=== PATIENT | female | born 1965 | race Two or more races ===

== ENCOUNTER → 2016-07-12 | Outpatient (CLI) | payer BC ==
[2016-07-12 10:09] LABS: PROTHROMBIN TIME 27.9 SEC (11.4-15.4)
== END ==
LOC: LAB 09:40
PROVIDERS: ATTEND Family Medicine
DX: I82.409 Acute embolism and thrombosis of unspecified deep veins of unspecified lower extremity (principal)
CPT/HCPCS: 36415; 85610

== ENCOUNTER → 2016-08-09 | Outpatient (CLI) | payer BC ==
[2016-08-09 11:51] LABS: PROTHROMBIN TIME 37.2 SEC (11.4-15.4)
== END ==
LOC: LAB 11:33
PROVIDERS: ATTEND Family Medicine
DX: I82.409 Acute embolism and thrombosis of unspecified deep veins of unspecified lower extremity (principal)
CPT/HCPCS: 36415; 85610

== ENCOUNTER → 2016-08-17 | Outpatient (CLI) | payer BC ==
[2016-08-17 10:12] LABS: PROTHROMBIN TIME 18.6 SEC (11.4-15.4)
[2016-08-17 10:34] LABS: ALANINE AMINOTRANSFERASE 38 U/L (9-52); ALBUMIN 4.9 g/dL (3.5-5.0); ALKALINE PHOSPHATASE 92 U/L (38-126); ANION GAP 13 (5-19); ASPARTATE AMINO TRANSFERASE 26 U/L (14-36); BILIRUBIN,TOTAL 0.5 mg/dL (0.2-1.3); BLOOD UREA NITROGEN 21 mg/dL (7-20); CALCIUM 11.3 mg/dL (8.4-10.2); CARBON DIOXIDE 28 mmol/L (22-30); CHLORIDE 102 mmol/L (98-107); CREATININE RESULT 1.09 mg/dL (0.52-1.25); GLUCOSE 143 mg/dL (75-110); POTASSIUM 4.1 mmol/L (3.6-5.0); SODIUM 142.6 mmol/L (137-145); TOTAL PROTEIN 8.1 g/dL (6.3-8.2)
== END ==
LOC: LAB 09:47
PROVIDERS: ATTEND Family Medicine
DX: I82.409 Acute embolism and thrombosis of unspecified deep veins of unspecified lower extremity (principal)
CPT/HCPCS: 36415; 80053; 84436; 84443; 85610

== ENCOUNTER → 2016-08-26 | Outpatient (CLI) | payer BC ==
[2016-08-26 17:40] LABS: PROTHROMBIN TIME 31.3 SEC (11.4-15.4)
== END ==
LOC: LAB 17:15
PROVIDERS: ATTEND Family Medicine
DX: D64.9 Anemia, unspecified (principal); I82.409 Acute embolism and thrombosis of unspecified deep veins of unspecified lower extremity
CPT/HCPCS: 36415; 82607; 82728; 82746; 83540; 83550; 85045; 85610

== ENCOUNTER → 2016-09-19 | Outpatient (CLI) | payer BC ==
[2016-09-19 14:05] LABS: PROTHROMBIN TIME 33.7 SEC (11.4-15.4)
== END ==
LOC: LAB 10:21
PROVIDERS: ATTEND Family Medicine
DX: I82.409 Acute embolism and thrombosis of unspecified deep veins of unspecified lower extremity (principal)
CPT/HCPCS: 36415; 85610

== ENCOUNTER → 2016-09-25 | Outpatient (CLI) | payer BC ==
[2016-09-25 13:48] LABS: PROTHROMBIN TIME 28.2 SEC (11.4-15.4)
== END ==
LOC: LAB 13:28
PROVIDERS: ATTEND Family Medicine
DX: I80.9 Phlebitis and thrombophlebitis of unspecified site (principal)
CPT/HCPCS: 36415; 85610

== ENCOUNTER → 2016-11-09 | Outpatient (CLI) | payer BC ==
[2016-11-09 10:13] LABS: PROTHROMBIN TIME 32.6 SEC (11.4-15.4)
== END ==
LOC: LAB 09:28
PROVIDERS: ATTEND Family Medicine
DX: I82.409 Acute embolism and thrombosis of unspecified deep veins of unspecified lower extremity (principal)
CPT/HCPCS: 36415; 85610

== ENCOUNTER 2016-11-19 08:55 | Emergency (ER) | payer BC ==
[2016-11-19 09:24] LABS: ABSOLUTE BASOPHILS # (AUTO) 0.1 10^3/uL (0.0-0.2); ABSOLUTE EOSINOPHILS # (AUTO) 0.6 10^3/uL (0.0-0.6); ABSOLUTE LYMPHOCYTES (AUTO) 1.5 10^3/uL (0.5-4.7); ABSOLUTE MONOCYTES (AUTO) 0.8 10^3/uL (0.1-1.4); ABSOLUTE NEUT (AUTO) 5.5 10^3/uL (1.7-8.2); BASOPHILS % (AUTO) 0.7 % (0-2); EOSINOPHILS % (AUTO) 6.9 % (0-6); HEMATOCRIT 42.5 % (36.0-47.0); HEMOGLOBIN 14.1 g/dL (12.0-15.5); HGB HCT DIFFERENCE -0.2; LYMPHOCYTES % (AUTO) 17.2 % (13-45); MEAN CORPUSCULAR HEMOGLOBIN 29.1 pg (27.0-33.4); MEAN CORPUSCULAR HGB CONC 33.2 g/dL (32.0-36.0); MEAN CORPUSCULAR VOLUME 88 fl (80-97); MONOCYTES % (AUTO) 9.9 % (3-13); RED BLOOD COUNT 4.85 10^6/uL (3.72-5.28); RED CELL DISTRIBUTION WIDTH 13.4 % (11.5-14.0); SEGMENTED NEUTROPHILS % (AUTO) 65.3 % (42-78); WHITE BLOOD COUNT 8.5 10^3/uL (4.0-10.5)
[2016-11-19 09:42] LABS: ALANINE AMINOTRANSFERASE 76 U/L (9-52); ALBUMIN 4.2 g/dL (3.5-5.0); ALKALINE PHOSPHATASE 180 U/L (38-126); ANION GAP 13 (5-19); ASPARTATE AMINO TRANSFERASE 52 U/L (14-36); BILIRUBIN,DIRECT 0.3 mg/dL (0.0-0.4); BILIRUBIN,TOTAL 0.6 mg/dL (0.2-1.3); BLOOD UREA NITROGEN 33 mg/dL (7-20); CARBON DIOXIDE 24 mmol/L (22-30); CHLORIDE 104 mmol/L (98-107); CREATININE RESULT 1.82 mg/dL (0.52-1.25); GLUCOSE 95 mg/dL (75-110); POTASSIUM 4.6 mmol/L (3.6-5.0); SODIUM 141.1 mmol/L (137-145); TOTAL PROTEIN 7.4 g/dL (6.3-8.2)
--- NOTE | 2016-11-19 09:44 | ER Document Report ---
ED General - General Chief Complaint: Possible Kidney Stone Stated Complaint: ABDOMINAL AND BACK PAIN Time Seen by Provider: 11/19/16 09:03 Mode of Arrival: Ambulatory Information source: Patient Notes: 50 yr old female hx of kidney stones recent uti diagnosis presents with complaints of flank pain. Denies any fevers or chills nausea vomiting or diarrhea TRAVEL OUTSIDE OF THE [place] IN LAST 30 DAYS: No - HPI Onset: Last week Onset/Duration: Persistent Quality of pain: Achy Severity: Mild Pain Level: 1 Associated symptoms: Other Exacerbated by: Denies Relieved by: Denies Similar symptoms previously: Yes Recently seen / treated by doctor: Yes - Related Data Allergies/Adverse Reactions: cephalexin monohydrate [From Keflex] Allergy (Verified 11/19/16 09:23) Past Medical History - Social History Smoking Status: Never Smoker Cigarette use (# per day): No Chew tobacco use (# tins/day): No Smoking Education Provided: No Frequency of alcohol use: None Drug Abuse: None Family History: Reviewed & Not Pertinent - Past Medical History Cardiac Medical History: Reports: Hx DVT, Hx Hypertension Renal/ Medical History: Reports: Hx Kidney Stones Psychiatric Medical History: Reports: Hx Attention Deficit Hyperactivity Disorder, Hx Bipolar Disorder, Hx Depression Past Surgical History: Reports: Hx Abdominal Surgery - gastric bypass, Hx Gastric Bypass Surgery, Hx Hysterectomy, Hx Kidney (Renal Surgery) - b/l kidneys - Immunizations Hx Diphtheria, Pertussis, Tetanus Vaccination: Yes Review of Systems - Review of Systems Notes: PHYSICAL EXAMINATION: GENERAL: Well-appearing, well-nourished and in no acute distress. HEAD: Atraumatic, normocephalic. EYES: Pupils equal round and reactive to light, extraocular movements intact, conjunctiva are normal. NECK: Normal range of motion LUNGS: Breath sounds clear to auscultation bilaterally and equal. No wheezes rales or rhonchi. HEART: Regular rate and rhythm without murmurs ABDOMEN: Soft, mild suprapubic tenderness no CVA tenderness Female : deferred Musculoskeletal: Normal range of motion, no pitting or edema. No cyanosis. NEUROLOGICAL: Cranial nerves grossly intact. Normal speech, normal gait. Normal sensory, motor exams PSYCH: Normal mood, normal affect. SKIN: Warm, Dry, normal turgor, no rashes or lesions noted. Physical Exam - Vital signs Vitals: Temp Pulse Resp BP Pulse Ox 97.7 F 103 H 16 145/90 H 98 11/19/16 09:33 11/19/16 09:33 11/19/16 09:33 11/19/16 09:33 11/19/16 09:33 Course - Re-evaluation Re-evalutation: 11/19/16 10:08 Patient is noted to have 3 infected stones on the left with bilateral hydronephrosis, I believe patient requires transfer to an outlying facility that has urology. I will start the patient on antibiotics IV fluids as she has renal insufficiency 11/19/16 11:02 Patient does not wish to be transferred to outlying facility wishes to leave AGAINST MEDICAL ADVICE After performing a Medical Screening Examination, I spoke with the patient at length in regards to leaving the hospital against medical advice. I do not believe the patient should leave but the patient is alert oriented x4, understands the risks and benefits of staying and leaving including disability and . Pt understands that she can return at any time for further care and is more than welcome to do so. Pt verbalizes this understanding. - Vital Signs Vital signs: Temp Pulse Resp BP Pulse Ox 97.7 F 103 H 16 145/90 H 98 11/19/16 09:33 11/19/16 09:33 11/19/16 09:33 11/19/16 09:33 11/19/16 09:33 - Laboratory Result Diagrams: 11/19/16 09:12 11/19/16 09:12 Laboratory results interpreted by me: 11/19/16 11/19/16 11/19/16 09:12 09:12 09:25 Eosinophils % 6.9 H BUN 33 H Creatinine 1.82 H Est GFR ( Amer) 36 L Est GFR (Non-Af Amer) 30 L AST 52 H ALT 76 H Alkaline Phosphatase 180 H Urine Protein 100 H Urine Blood MODERATE H Ur Leukocyte Esterase LARGE H Urine Ascorbic Acid 20 H - Diagnostic Test Radiology reviewed: Image reviewed, Reports reviewed - 3 stones noted in left UVJ bilateral hydronephrosis reports given to patient Discharge - Discharge Clinical Impression: Bilateral hydronephrosis, Acute renal insufficiency, Kidney stones UTI (urinary tract infection) Qualifiers: Urinary tract infection type: acute cystitis Hematuria presence: with hematuria Qualified Code(s): N30.01 - Acute cystitis with hematuria Condition: Fair Disposition: AGAINST MEDICAL ADVICE Additional Instructions: Please go directly to another facility or return immediately if there are any other concern
[2016-11-19 09:48] LABS: APPEARANCE,URINE CLOUDY; BILIRUBIN,URINE NEGATIVE (NEGATIVE); GLUCOSE, URINE NEGATIVE (NEGATIVE); KETONES,URINE NEGATIVE (NEGATIVE); LEUKOCYTE ESTERASE,URINE LARGE (NEGATIVE); NITRITE,URINE NEGATIVE (NEGATIVE); PROTEIN,URINE 100 mg/dL (NEGATIVE); URINE SPECIFIC GRAVITY 1.009; UROBILINOGEN,URINE NEGATIVE mg/dL (<2.0)
--- NOTE | 2016-11-19 09:57 | RADIOLOGY REPORT (SQ) ---
EXAM DESCRIPTION: CT LTD RENAL STONE PROTOCOL ON COMPLETED DATE/TIME: 11/19/2016 9:42 am REASON FOR STUDY: flank pain COMPARISON: None. TECHNIQUE: CT scan of the abdomen and pelvis performed without intravenous or oral contrast. Images reviewed with lung, soft tissue, and bone windows. Reconstructed coronal and sagittal MPR images revi ewed. All images stored on PACS. All CT scanners at this facility use dose modulation, iterative reconstruction, and/or weight based d osing when appropriate to reduce radiation dose to as low as reasonably achievable (ALARA). [facility]: Dose Right [facility]: CareDose [facility]: Dose Right [facility]: Teradose 4D [facility]: [place] RADIATION DOSE: 14.96mGy. LIMITATIONS: None. FINDINGS: LOWER CHEST: 4.8 mm indeterminate nodule right lung base. NON-CONTRASTED LIVER, SPLEEN, ADRENALS: Evaluation limited by lack of IV contrast. No identified sign ificant masses. PANCREAS: No masses. No peripancreatic inflammatory changes. GALLBLADDER: No identified stones by CT criteria. No inflammatory changes to suggest cholecystitis. RIGHT KIDNEY AND URETER: No suspicious masses. Assessment limited by lack of IV contrast. Multiple large calculi. Largest in the renal pelvis is 2.3 cm. Hounsfield units 1,072. Marked hydronephros is secondary UPJ obstruction. Additional peripelvic cysts. LEFT KIDNEY AND URETER: No suspicious masses. Assessment limited by lack of IV contrast. Multiple l arge intrarenal calculi. Largest conglomerate is 4 cm. Hounsfield units 870. Proximal ureteral dayanara culus measures 5.8 mm. Additional distal ureteral calculi and 1 at the UV junction measures 7.2 mm. [id number] hydronephrosis. AORTA AND RETROPERITONEUM: No aneurysm. No retroperitoneal masses or adenopathy. BOWEL AND PERITONEAL CAVITY: No obvious masses or inflammatory changes. No free fluid. APPENDIX: Normal. PELVIS, BLADDER, AND ABDOMINAL WALL:No abnormal masses. No free fluid. Bladder normal. BONES: Extensive degenerative and posttraumatic changes in the spine. No acute process. OTHER: No other significant finding. IMPRESSION: Marked bilateral nephrolithiasis. Marked UPJ obstruction on the right in there are 2 large renal pelvis calculi. Moderate to marked Hydronephrosis on the left to the level of the UV junction. Multiple large calcul i in the kidney with a proximal ureteral calculus of 5.8 mm. There are several distal ureteral calcu li with the largest at the UV junction measuring 7.2 mm. TECHNICAL DOCUMENTATION: JOB ID: [id number] Quality ID # [id number]: Final reports with documentation of one or more dose reduction techniques (e.g., Au tomated exposure control, adjustment of the mA and/or kV according to patient size, use of iterative reconstruction technique) 2010 [employer]- All Rights Reserved
[2016-11-19] MEDS ORDERED: NORMAL SALINE 1000 ML 1,000 ML IV ONE (09:59)
[2016-11-19] MEDS ORDERED: CIPROFLOXACIN 200 MG/D5W RTU 100 ML IV SCH (10:00)
[2016-11-19] MEDS ORDERED: OXYCODONE-ACETAMINOPHEN 5-325 MG TABLET PO ONE (10:08)
[2016-11-19] MEDS ORDERED: METHYLPREDNISOLONE INJ 125 MG/2 ML SDV IV ONE (10:13)
[2016-11-19 10:57] LABS: PROTHROMBIN TIME 30.2 SEC (11.4-15.4)
[2016-11-19 11:28] VITALS: BP 155/100
== END 2016-11-19 11:34 | disposition left against medical advice (07) ==
LOC: ER 08:55
DX: N13.6 Pyonephrosis (principal); N30.01 Acute cystitis with hematuria; N28.9 Disorder of kidney and ureter, unspecified; I10 Essential (primary) hypertension; Z98.84 Bariatric surgery status; Z90.710 Acquired absence of both cervix and uterus; Z86.718 Personal history of other venous thrombosis and embolism; Z88.1 Allergy status to other antibiotic agents; Z53.20 Procedure and treatment not carried out because of patient's decision for unspecified reasons
CPT/HCPCS: 99284; 96375; 96365; 36415; 87086; 85025; 85610; 87088; 80053; 81001; 76380; J2930; J7030; J0744

== ENCOUNTER → 2016-11-27 | Outpatient (CLI) | payer BC ==
[2016-11-27 13:47] LABS: HEMATOCRIT 41.4 % (36.0-47.0); HEMOGLOBIN 13.9 g/dL (12.0-15.5); HGB HCT DIFFERENCE 0.3; MEAN CORPUSCULAR HEMOGLOBIN 29.1 pg (27.0-33.4); MEAN CORPUSCULAR HGB CONC 33.5 g/dL (32.0-36.0); MEAN CORPUSCULAR VOLUME 87 fl (80-97); RED BLOOD COUNT 4.77 10^6/uL (3.72-5.28); RED CELL DISTRIBUTION WIDTH 13.2 % (11.5-14.0); WHITE BLOOD COUNT 7.1 10^3/uL (4.0-10.5)
== END ==
LOC: LAB 12:46
PROVIDERS: ATTEND Family Medicine
DX: D72.829 Elevated white blood cell count, unspecified (principal)
CPT/HCPCS: 36415; 85027

== ENCOUNTER → 2016-12-13 | Outpatient (CLI) | payer BC ==
--- NOTE | 2016-12-13 18:10 | RADIOLOGY REPORT (SQ) ---
EXAM DESCRIPTION: CHEST PA/LAT COMPLETED DATE/TIME: 12/13/2016 6:02 pm REASON FOR STUDY: PREOP COMPARISON: None. EXAM PARAMETERS: NUMBER OF VIEWS: two views TECHNIQUE: Digital Frontal and Lateral radiographic views of the chest acquired. RADIATION DOSE: NA LIMITATIONS: none FINDINGS: LUNGS AND PLEURA: No opacities, masses or pneumothorax. No pleural effusion. MEDIASTINUM AND HILAR STRUCTURES: No masses or contour abnormalities. HEART AND VASCULAR STRUCTURES: Heart normal size. No evidence for failure. BONES: No acute findings. HARDWARE: None in the chest. OTHER: No other significant finding. IMPRESSION: NO SIGNIFICANT RADIOGRAPHIC FINDING IN THE CHEST. TECHNICAL DOCUMENTATION: JOB ID: [id number] [employer]- All Rights Reserved
[2016-12-13 18:21] LABS: ABSOLUTE BASOPHILS # (AUTO) 0.1 10^3/uL (0.0-0.2); ABSOLUTE EOSINOPHILS # (AUTO) 0.4 10^3/uL (0.0-0.6); ABSOLUTE LYMPHOCYTES (AUTO) 2.3 10^3/uL (0.5-4.7); ABSOLUTE MONOCYTES (AUTO) 0.7 10^3/uL (0.1-1.4); ABSOLUTE NEUT (AUTO) 3.8 10^3/uL (1.7-8.2); EOSINOPHILS % (AUTO) 4.9 % (0-6); HEMATOCRIT 40.5 % (36.0-47.0); HEMOGLOBIN 13.3 g/dL (12.0-15.5); HGB HCT DIFFERENCE -0.6; LYMPHOCYTES % (AUTO) 31.6 % (13-45); MEAN CORPUSCULAR HEMOGLOBIN 28.8 pg (27.0-33.4); MEAN CORPUSCULAR HGB CONC 32.7 g/dL (32.0-36.0); MEAN CORPUSCULAR VOLUME 88 fl (80-97); MONOCYTES % (AUTO) 9.3 % (3-13); RED BLOOD COUNT 4.61 10^6/uL (3.72-5.28); RED CELL DISTRIBUTION WIDTH 13.7 % (11.5-14.0); SEGMENTED NEUTROPHILS % (AUTO) 53.2 % (42-78); WHITE BLOOD COUNT 7.2 10^3/uL (4.0-10.5)
[2016-12-13 18:24] LABS: PROTHROMBIN TIME 18.8 SEC (11.4-15.4)
[2016-12-13 18:43] LABS: ANION GAP 12 (5-19); BLOOD UREA NITROGEN 24 mg/dL (7-20); CALCIUM 10.3 mg/dL (8.4-10.2); CARBON DIOXIDE 24 mmol/L (22-30); CHLORIDE 105 mmol/L (98-107); CREATININE RESULT 1.15 mg/dL (0.52-1.25); GLUCOSE 74 mg/dL (75-110); POTASSIUM 4.5 mmol/L (3.6-5.0); SODIUM 140.7 mmol/L (137-145)
--- NOTE | 2016-12-13 19:47 | EKG REPORT ---
SEVERITY:- BORDERLINE ECG - SINUS RHYTHM PROBABLE LEFT ATRIAL ABNORMALITY : Confirmed by: Alvarez Teixeira MD 13-Dec-2016 19:46:26
== END ==
LOC: RAD 17:15
PROVIDERS: ATTEND Urology
DX: I82.409 Acute embolism and thrombosis of unspecified deep veins of unspecified lower extremity (principal); N20.0 Calculus of kidney
CPT/HCPCS: 36415; 71020; 80048; 85025; 85610; 87070; 93005; 93010

== ENCOUNTER → 2017-01-30 | Outpatient (CLI) | payer BC ==
[2017-01-31 00:54] LABS: ABSOLUTE BASOPHILS # (AUTO) 0.1 10^3/uL (0.0-0.2); ABSOLUTE EOSINOPHILS # (AUTO) 0.3 10^3/uL (0.0-0.6); ABSOLUTE LYMPHOCYTES (AUTO) 1.6 10^3/uL (0.5-4.7); ABSOLUTE MONOCYTES (AUTO) 0.6 10^3/uL (0.1-1.4); BASOPHILS % (AUTO) 0.9 % (0-2); EOSINOPHILS % (AUTO) 4.8 % (0-6); HEMATOCRIT 42.3 % (36.0-47.0); HEMOGLOBIN 14.6 g/dL (12.0-15.5); HGB HCT DIFFERENCE 1.5; LYMPHOCYTES % (AUTO) 24.1 % (13-45); MEAN CORPUSCULAR HEMOGLOBIN 29.3 pg (27.0-33.4); MEAN CORPUSCULAR HGB CONC 34.5 g/dL (32.0-36.0); MEAN CORPUSCULAR VOLUME 85 fl (80-97); RED BLOOD COUNT 4.98 10^6/uL (3.72-5.28); RED CELL DISTRIBUTION WIDTH 13.7 % (11.5-14.0); SEGMENTED NEUTROPHILS % (AUTO) 61.2 % (42-78); WHITE BLOOD COUNT 6.5 10^3/uL (4.0-10.5)
[2017-01-31 01:17] LABS: PROTHROMBIN TIME 27.5 SEC (11.4-15.4)
[2017-01-31 01:37] LABS: ALANINE AMINOTRANSFERASE 34 U/L (9-52); ALBUMIN 4.4 g/dL (3.5-5.0); ALKALINE PHOSPHATASE 102 U/L (38-126); ANION GAP 13 (5-19); ASPARTATE AMINO TRANSFERASE 27 U/L (14-36); BILIRUBIN,DIRECT 0.4 mg/dL (0.0-0.4); BILIRUBIN,TOTAL 0.5 mg/dL (0.2-1.3); BLOOD UREA NITROGEN 15 mg/dL (7-20); CALCIUM 10.9 mg/dL (8.4-10.2); CARBON DIOXIDE 27 mmol/L (22-30); CHLORIDE 102 mmol/L (98-107); CREATININE RESULT 0.95 mg/dL (0.52-1.25); GLUCOSE 116 mg/dL (75-110); POTASSIUM 3.9 mmol/L (3.6-5.0); SODIUM 142.4 mmol/L (137-145); TOTAL PROTEIN 7.4 g/dL (6.3-8.2)
== END ==
LOC: LAB 23:42
PROVIDERS: ATTEND Family Medicine
DX: I10 Essential (primary) hypertension (principal); D53.9 Nutritional anemia, unspecified; I80.9 Phlebitis and thrombophlebitis of unspecified site; R73.9 Hyperglycemia, unspecified
CPT/HCPCS: 36415; 80053; 85025; 85610

== ENCOUNTER → 2017-02-21 | Outpatient (CLI) | payer BC ==
[2017-02-21 16:42] LABS: ALANINE AMINOTRANSFERASE 33 U/L (9-52); ALKALINE PHOSPHATASE 101 U/L (38-126); ANION GAP 10 (5-19); ASPARTATE AMINO TRANSFERASE 23 U/L (14-36); BILIRUBIN,DIRECT 0.4 mg/dL (0.0-0.4); BILIRUBIN,TOTAL 0.4 mg/dL (0.2-1.3); BLOOD UREA NITROGEN 27 mg/dL (7-20); CALCIUM 10.3 mg/dL (8.4-10.2); CARBON DIOXIDE 24 mmol/L (22-30); CHLORIDE 107 mmol/L (98-107); CREATININE RESULT 1.24 mg/dL (0.52-1.25); GLUCOSE 107 mg/dL (75-110); POTASSIUM 4.1 mmol/L (3.6-5.0); SODIUM 141.4 mmol/L (137-145); TOTAL PROTEIN 6.9 g/dL (6.3-8.2)
== END ==
LOC: LAB 11:01
PROVIDERS: ATTEND Family Medicine
DX: I10 Essential (primary) hypertension (principal); D53.9 Nutritional anemia, unspecified; I80.9 Phlebitis and thrombophlebitis of unspecified site; R73.9 Hyperglycemia, unspecified; E83.52 Hypercalcemia; Z86.718 Personal history of other venous thrombosis and embolism
CPT/HCPCS: 36415; 80053; 82330; 83970; 85610

== ENCOUNTER → 2017-04-18 | Outpatient (CLI) | payer BC ==
[2017-04-18 17:24] LABS: PROTHROMBIN TIME 31.9 SEC (11.4-15.4)
== END ==
LOC: LAB 13:24
PROVIDERS: ATTEND Family Medicine
DX: I80.9 Phlebitis and thrombophlebitis of unspecified site (principal)
CPT/HCPCS: 36415; 85610

== ENCOUNTER → 2017-05-05 | Outpatient (CLI) | payer BC ==
[2017-05-05 16:31] LABS: PROTHROMBIN TIME 27.1 SEC (11.4-15.4)
== END ==
LOC: LAB 16:17
PROVIDERS: ATTEND Family Medicine
DX: I80.9 Phlebitis and thrombophlebitis of unspecified site (principal)
CPT/HCPCS: 36415; 85610

== ENCOUNTER → 2017-07-04 | Outpatient (CLI) | payer BC ==
[2017-07-04 13:36] LABS: INTERNATIONAL RATION (INR) 1.66; PROTHROMBIN TIME 20.6 SEC (11.4-15.4)
== END ==
LOC: LAB 13:18
PROVIDERS: ATTEND Family Medicine
DX: I80.9 Phlebitis and thrombophlebitis of unspecified site (principal)
CPT/HCPCS: 36415; 85610

== ENCOUNTER → 2017-08-03 | Outpatient (CLI) | payer BC ==
[2017-08-03 09:46] LABS: INTERNATIONAL RATION (INR) 2.83; PROTHROMBIN TIME 31.1 SEC (11.4-15.4)
== END ==
LOC: LAB 09:11
PROVIDERS: ATTEND Family Medicine
DX: I80.9 Phlebitis and thrombophlebitis of unspecified site (principal)
CPT/HCPCS: 36415; 85610

== ENCOUNTER → 2017-08-10 | Outpatient (CLI) | payer BC ==
[2017-08-10 08:51] LABS: HEMOGLOBIN 15.1 g/dL (12.0-15.5); MEAN CORPUSCULAR HEMOGLOBIN 28.2 pg (27.0-33.4); MEAN CORPUSCULAR HGB CONC 33.5 g/dL (32.0-36.0); MEAN CORPUSCULAR VOLUME 84 fl (80-97); PLATELET COUNT 293 10^3/uL (150-450); RED BLOOD COUNT 5.34 10^6/uL (3.72-5.28); RED CELL DISTRIBUTION WIDTH 14.2 % (11.5-14.0); WHITE BLOOD COUNT 7.4 10^3/uL (4.0-10.5)
[2017-08-10 08:57] LABS: INTERNATIONAL RATION (INR) 1.93; PROTHROMBIN TIME 23.2 SEC (11.4-15.4)
== END ==
LOC: LAB 08:42
PROVIDERS: ATTEND Family Medicine
DX: I80.9 Phlebitis and thrombophlebitis of unspecified site (principal)
CPT/HCPCS: 36415; 85027; 85610

== ENCOUNTER → 2017-12-05 | Outpatient (CLI) | payer BC ==
[2017-12-05 15:18] LABS: ALBUMIN 4.2 g/dL (3.5-5.0); ANION GAP 13 (5-19); BLOOD UREA NITROGEN 21 mg/dL (7-20); CALCIUM 10.8 mg/dL (8.4-10.2); CARBON DIOXIDE 23 mmol/L (22-30); CHLORIDE 107 mmol/L (98-107); GLUCOSE 105 mg/dL (75-110); PHOSPHORUS 4.8 mg/dL (2.5-4.5); POTASSIUM 4.5 mmol/L (3.6-5.0); SODIUM 142.9 mmol/L (137-145)
== END ==
LOC: LAB 14:35
PROVIDERS: ATTEND Family Medicine
DX: I12.9 Hypertensive chronic kidney disease with stage 1 through stage 4 chronic kidney disease, or unspecified chronic kidney disease (principal); N18.9 Chronic kidney disease, unspecified
CPT/HCPCS: 36415; 80069

== ENCOUNTER 2018-02-16 04:24 | Emergency (ER) | payer BC ==
[2018-02-16 04:31] VITALS: BP 146/89
[2018-02-16] MEDS ORDERED: CLONIDINE 0.1 MG/24 HR PATCH.TDWK TD ONE (04:37)
[2018-02-16] MEDS ORDERED: HYDROCODONE/ACETAMINOPHEN 5-325 MG (6 TAB/ER DISP) PO PRN (04:37)
[2018-02-16] MEDS ORDERED: HYDROCODONE/ACETAMINOPHEN 5-325 MG TABLET PO ONE (04:37)
--- NOTE | 2018-02-16 04:59 | ER Document Report ---
ED General - General Chief Complaint: Medication Refill Stated Complaint: MEDICATION REFILL Time Seen by Provider: 02/16/18 04:35 Notes: Patient is a 52-year-old female presents with complaint of being out of her medication. She works here at the hospital. She is on chronic pain medicine due to history of chronic recurrent kidney stones as well as chronic back pain from her previous injury. She usually takes [place] some half milligram tablets. She does get all this from a single prescriber. She says that she is just now starting for symptoms of withdrawal including increasing pain. No vomiting as of yet. TRAVEL OUTSIDE OF THE [place] IN LAST 30 DAYS: No - Related Data Allergies/Adverse Reactions: cephalexin monohydrate [From [employer]] Allergy (Verified 02/16/18 04:43) Past Medical History - Social History Smoking Status: Former Smoker Frequency of alcohol use: Occasional Drug Abuse: None Family History: Reviewed & Not Pertinent Patient has suicidal ideation: No Patient has homicidal ideation: No - Past Medical History Cardiac Medical History: Reports: Hx DVT, Hx Hypertension Renal/ Medical History: Reports: Hx Kidney Stones. Denies: Hx Peritoneal Dialysis Psychiatric Medical History: Reports: Hx Attention Deficit Hyperactivity Disorder, Hx Bipolar Disorder, Hx Depression Past Surgical History: Reports: Hx Abdominal Surgery - gastric bypass, Hx Gastric Bypass Surgery, Hx Hysterectomy, Hx Kidney (Renal Surgery) - b/l kidneys - Immunizations Hx Diphtheria, Pertussis, Tetanus Vaccination: Yes Review of Systems - Review of Systems Notes: My Normal Review Basic REVIEW OF SYSTEMS: CONSTITUTIONAL : Denies fever, chills, or sweats. Denies recent illness. CARDIOVASCULAR: Denies chest pain. RESPIRATORY: Denies cough, cold, or chest congestion. Denies shortness of breath, difficulty breathing, or wheezing. GASTROINTESTINAL: Denies abdominal pain. Denies nausea, vomiting, or diarrhea. MUSCULOSKELETAL: Chronic back pain SKIN: Denies rash or skin lesions. NEUROLOGICAL: Denies altered mental status or loss of consciousness. Denies sensory or motor loss. ALL OTHER SYSTEMS REVIEWED AND NEGATIVE. Physical Exam - Vital signs Vitals: Temp Pulse Resp BP Pulse Ox 98.1 F 86 22 H 146/89 H 95 02/16/18 04:30 02/16/18 04:30 02/16/18 04:30 02/16/18 04:30 02/16/18 04:30 - Notes Notes: General Appearance: Well nourished, alert, cooperative, no acute distress, no obvious discomfort. Well appearing. Vitals: reviewed, See vital signs table. Eyes: PERRL, EOMI, Conjuctiva clear Mouth: No decreasd moisture Lungs: No wheezing, No rales, No rhonci, No accessory muscle use, good air exchange bilaterally. Heart: Normal rate, Regular rythm, No murmur, no rub Back: No reproducible pain palpation of lower back. Patient's the pain is more of a chronic that has not made worse with palpation. Extremities: good pulses in all extremities, no edema. Skin: warm, dry, appropriate color, no rash Neuro: speech clear, oriented x 3, normal affect, responds appropriately to questions. Normal gait. Course - Re-evaluation Re-evalutation: 02/16/18 05:07 Patient will be given a to go pack of 6 [place]. Also give her clonidine patch and to help curb any withdrawal symptoms so that hopefully she can make these [place] last longer time until she can get her medications again. Patient to return to ER if she has intractable vomiting, intractable pain, or she feels that she is having worsening onset of withdrawal symptoms. Patient agrees with plan will be discharged. Dictation of this chart was performed using voice recognition software; therefore, there may be some unintended grammatical errors. - Vital Signs Vital signs: Temp Pulse Resp BP Pulse Ox 98.1 F 86 22 H 146/89 H 95 02/16/18 04:30 02/16/18 04:30 02/16/18 04:30 02/16/18 04:30 02/16/18 04:30 Discharge - Discharge Clinical Impression: Medication refill Condition: Good Disposition: HOME, SELF-CARE Additional Instructions: Please follow up with your doctor for continued pain management. please remove the patch if it makes you feel light headed. Please return to the ER if you have intractable vomiting or feel unwell due to medication withdrawl.
== END 2018-02-16 05:16 | disposition home or self-care (01) ==
LOC: ER 04:24
DX: Z76.0 Encounter for issue of repeat prescription (principal); Z79.01 Long term (current) use of anticoagulants; Z87.891 Personal history of nicotine dependence; I10 Essential (primary) hypertension
CPT/HCPCS: 99281; J3490

== ENCOUNTER 2018-02-21 12:20 | Emergency (ER) | payer BC ==
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
[2018-02-21 13:10] VITALS: BP 139/106
== END 2018-02-21 13:03 | disposition home or self-care (01) ==
LOC: ER 12:20
DX: M54.5 Low back pain (principal); G89.29 Other chronic pain; M25.50 Pain in unspecified joint; I10 Essential (primary) hypertension
CPT/HCPCS: 99283

== ENCOUNTER → 2018-03-24 | Outpatient (CLI) | payer BC ==
[2018-03-24 15:20] LABS: ANION GAP 11 (5-19); BLOOD UREA NITROGEN 21 mg/dL (7-20); CALCIUM 10.4 mg/dL (8.4-10.2); CARBON DIOXIDE 28 mmol/L (22-30); CHLORIDE 102 mmol/L (98-107); GLUCOSE 83 mg/dL (75-110); POTASSIUM 4.2 mmol/L (3.6-5.0); SODIUM 141.1 mmol/L (137-145)
== END ==
LOC: LAB 14:37
PROVIDERS: ATTEND Family Medicine
DX: E83.52 Hypercalcemia (principal)
CPT/HCPCS: 36415; 80048; 83970

== ENCOUNTER → 2018-04-30 | Outpatient (CLI) | payer BC ==
[2018-04-30 14:14] LABS: ANION GAP 11 (5-19); BLOOD UREA NITROGEN 24 mg/dL (7-20); CALCIUM 10.6 mg/dL (8.4-10.2); CARBON DIOXIDE 27 mmol/L (22-30); CHLORIDE 104 mmol/L (98-107); GLUCOSE 110 mg/dL (75-110); PHOSPHORUS 3.8 mg/dL (2.5-4.5); POTASSIUM 4.2 mmol/L (3.6-5.0); SODIUM 141.9 mmol/L (137-145)
== END ==
LOC: LAB 13:19
PROVIDERS: ATTEND Internal Medicine Endocrinology, Diabetes & Metabolism
DX: E83.52 Hypercalcemia (principal)
CPT/HCPCS: 36415; 80048; 82306; 82330; 83970; 84100

== ENCOUNTER → 2018-07-27 | Outpatient (CLI) | payer BC ==
[2018-07-27 15:36] LABS: ANION GAP 10 (5-19); BLOOD UREA NITROGEN 26 mg/dL (7-20); CALCIUM 10.8 mg/dL (8.4-10.2); CARBON DIOXIDE 26 mmol/L (22-30); CHLORIDE 105 mmol/L (98-107); GLUCOSE 105 mg/dL (75-110); PHOSPHORUS 4.8 mg/dL (2.5-4.5); POTASSIUM 4.5 mmol/L (3.6-5.0); SODIUM 140.5 mmol/L (137-145)
== END ==
LOC: LAB 15:09
PROVIDERS: ATTEND Internal Medicine Endocrinology, Diabetes & Metabolism
DX: E83.52 Hypercalcemia (principal)
CPT/HCPCS: 36415; 80048; 82306; 82330; 83970; 84100

== ENCOUNTER 2018-11-14 11:09 | Emergency (ER) | payer BC ==
[2018-11-14 11:24] VITALS: BP 152/90
[2018-11-14] MEDS ORDERED: DEXAMETHASONE SOD PHOS INJ 10 MG/1 ML VIAL IM ONE (11:55)
--- NOTE | 2018-11-14 11:57 | ER Document Report ---
HPI - HPI Time Seen by Provider: 11/14/18 11:34 Pain Level: 3 Notes: Patient is a 52-year-old female with history of gout presenting with chief complaint of left foot pain. Patient reports that this feels the same as previous gout attacks. She also has a history of plantar fasciitis. She denies any recent injury. Reports she has tried taking Tylenol with minimal relief. - REPRODUCTIVE Reproductive: DENIES: : - MUSCULOSKELETAL Musculoskeletal: REPORTS: Extremity pain - left foot Past Medical History - General Information source: Patient - Social History Smoking Status: Former Smoker Frequency of alcohol use: None Drug Abuse: None Family History: Reviewed & Not Pertinent Patient has suicidal ideation: No Patient has homicidal ideation: No - Past Medical History Cardiac Medical History: Reports: Hx DVT, Hx Hypertension Renal/ Medical History: Reports: Hx Kidney Stones. Denies: Hx Peritoneal Dialysis Psychiatric Medical History: Reports: Hx Attention Deficit Hyperactivity Disorder, Hx Bipolar Disorder, Hx Depression Past Surgical History: Reports: Hx Abdominal Surgery - gastric bypass/AAA repair, Hx Gastric Bypass Surgery, Hx Hysterectomy, Hx Kidney (Renal Surgery) - b/l kidneys - Immunizations Hx Diphtheria, Pertussis, Tetanus Vaccination: Yes Vertical Provider Document - CONSTITUTIONAL Notes: PHYSICAL EXAMINATION: GENERAL: Well-appearing, well-nourished and in no acute distress. HEAD: Atraumatic, normocephalic. EYES: Pupils equal round extraocular movements intact, conjunctiva are normal. ENT: Nares patent NECK: Normal range of motion LUNGS: No respiratory distress Musculoskeletal: Normal range of motion NEUROLOGICAL: Normal speech, normal gait. PSYCH: Normal mood, normal affect. SKIN: Erythema noted to the great toe extending up over the first metatarsal. No obvious edema or ecchymosis. Strong dorsalis pedis pulse. - INFECTION CONTROL TRAVEL OUTSIDE OF THE [place] IN LAST 30 DAYS: No Course - Re-evaluation Re-evalutation: Examination is consistent with acute gout flareup. Patient will be started on appropriate medications and discharged home. - Vital Signs Vital signs: Temp Pulse Resp BP Pulse Ox 97.8 F 84 18 152/90 H 96 11/14/18 11:23 11/14/18 11:23 11/14/18 11:23 11/14/18 11:23 11/14/18 11:23 Discharge - Discharge Clinical Impression: Acute gout attack Condition: Stable Disposition: HOME, SELF-CARE Additional Instructions: Gout You have been diagnosed as having gout. Gout is a problem caused by an excess of uric acid, a natural chemical found in the body. The cause of this disease is unknown. Gout arthritis occurs when crystals of uric acid form in the joints. The big toe is the most common joint involved, but any joint can become affected. Persons with gout may also form uric acid kidney stones, resulting in flank pain and blood in the urine. Nodules of uric acid may form under the skin. The first step of treatment is to decrease the inflammation in the joint with antiinflammatory medication. Medication to lower the uric acid level in the blood may then be prescribed. This medication should be taken regularly, as any sudden change in dosage may provoke an attack of gout. Some foods, such as red meat, can provoke an attack in some gout sufferers. Call the doctor if new symptoms arise, or if you do not improve. Gout Diet Changing your diet can decrease the uric acid in your blood. High levels of uric acid cause gouty arthritis and uric acid kidney stones. If you have gout, you should avoid meats that are high in purine. Meat products to avoid include liver, kidneys, and brains. In general, poultry is better than red meats. Seafoods to avoid include anchovies, sardines, lamar, mackerel, and scallops. In addition to limiting purine-rich foods, people with gout should limit protein intake to 10-15% of total calories. Carbohydrate intake should be around 50% of total daily calories. Limit fat intake to 30% of total daily calories. Cholesterol intake should be less than 300 mg/day. Maintain or achieve a healthy body weight. Weight loss should be gradual. Rapid weight loss can actually increase uric acid levels temporarily. Alcohol, especially beer, should be avoided. Get plenty of fluids. This dilutes urinary uric acid, and helps prevent uric acid kidney stones. Drink eight to twelve cups of water daily. As discussed please start taking the prednisone in 2 to 3 days as the injection of steroids last in your system for several days. Take Tylenol/acetaminophen for the pain since you are unable to take NSAIDs. Try to watch your diet and avoid the foods as outlined above. Return to the emergency department for any new or worsening symptoms. Prescriptions: Prednisone [Deltasone 20 mg Tablet] 3 tab PO DAILY 5 Days #15 tablet
== END 2018-11-14 12:13 | disposition home or self-care (01) ==
LOC: ER 11:09
DX: M10.9 Gout, unspecified (principal); M79.672 Pain in left foot; I10 Essential (primary) hypertension
CPT/HCPCS: 99282; 96372; J1100

== ENCOUNTER 2019-01-06 07:42 | Emergency (ER) | payer BC ==
--- NOTE | 2019-01-06 08:16 | ER Document Report ---
ED General - General Chief Complaint: Shortness Of Breath Stated Complaint: SHORTNESS OF BREATH Primary Care Provider: BRANDON RICK MD [Primary Care Provider] - Follow up in 3-5 days TRAVEL OUTSIDE OF THE [place] IN LAST 30 DAYS: No - HPI Notes: 53-year-old female to the emergency department with complaints of acute onset of shortness of breath that began about 40 minutes prior to arrival. She states that she was getting up to do her normal daily activities when she became so short of breath that she really cannot move around. She states that her shortness of breath gets worse with walking. She also admits to dizziness. She states that she feels like the room is spinning. She admits to mild nausea but has not had any vomiting. She denies diaphoresis. Initially she states that she does not have chest pain but then she admits that she has focal right-sided chest pain that is worse with big deep breath. She does have a recent history of Aortic Dissection repair in August of this year. States that she also has a headache. She states that this headache is typical of her normal daily he adaches, for which she takes Vicodin. - Related Data Allergies/Adverse Reactions: cephalexin monohydrate [From Keflex] Allergy (Verified 01/06/19 07:45) Past Medical History - General Information source: Patient - Social History Smoking Status: Former Smoker Frequency of alcohol use: None Drug Abuse: None Family History: Reviewed & Not Pertinent - Past Medical History Cardiac Medical History: Reports: Hx DVT, Hx Hypertension Renal/ Medical History: Reports: Hx Kidney Stones. Denies: Hx Peritoneal Di alysis Psychiatric Medical History: Reports: Hx Attention Deficit Hyperactivity Disorder, Hx Bipolar Disorder, Hx Depression Past Surgical History: Reports: Hx Abdominal Surgery - gastric bypass/AAA repair, Hx Gastric Bypass Surgery, Hx Hysterectomy, Hx Kidney (Renal Surgery) - b/l kidneys - Immunizations Hx Diphtheria, Pertussis, Tetanus Vaccination: Yes Review of Systems - Review of Systems Constitutional: denies: Chills, Diaphoresis, Fever EENT: denies: No symptoms reported Cardiovascular: See HPI, Chest pain, Dizziness. denies: Palpitations, Dyspnea, Syncope, Lightheaded Respiratory: Short of breath. denies: Cough Gastrointestinal: denies: Abdominal pain, Diarrhea, Nausea, Vomiting Genitourinary: denies: Frequency, Flank pain, Hematuria Musculoskeletal: No symptoms reported Skin: No symptoms reported Hematologic/Lymphatic: No symptoms reported Neurological/Psychological: See HPI. denies: Headaches -: Yes All other systems reviewed and negative Physical Exam - Vital signs Vitals: Pulse Resp BP Pulse Ox 78 20 119/89 H 99 01/06/19 07:45 01/06/19 07:45 01/06/19 07:45 01/06/19 07:45 Interpretation: Normal - General General appearance: Alert, Anxious Notes: Patient is lying on the bed with her eyes closed. She is not very cooperative with exam or with giving history - HEENT Head: Normocephalic, Atraumatic Eyes: Normal Pupils: PERRL - Respiratory Respiratory status: No respiratory distress Chest status: Tender - mild focal TTP over the right chest at the level of rib #5, Wounds - healed incision site from AD repair Breath sounds: Normal Chest palpation: Normal - Cardiovascular Rhythm: Regular Heart sounds: Normal auscultation Murmur: No - Abdominal Inspection: Normal Distension: No distension Bowel sounds: Normal Tenderness: Nontender Organomegaly: No organomegaly Notes: no pulsatile mass - Back Back: Normal, Nontender - Neurological Neuro grossly intact: Yes Cognition: Normal Orientation: AAOx4 Meng Coma Scale Eye Opening: Spontaneous Phyllis Coma Scale Verbal: Oriented Meng Coma Scale Motor: Obeys Commands Meng Coma Scale Total: 15 Speech: Normal Motor strength normal: LUE, RUE, LLE, RLE Sensory: Normal - Psychological Associated symptoms: Normal mood, Anxious - Skin Skin Temperature: Warm Skin Moisture: Dry Skin Color: Normal Course - Re-evaluation Re-evalutation: Discussed patient with Dr. Olson. We agree that patient will need CT chest/abd/pel to eval her aortic dissection. Will continue to monitor closely. Noted CTA chest/abd/pelv -- did call radiologist as reading was incorrectly dictated -- she has dissection into her renal arteries (not aneurysm). Radiologist states he will update reading. Rounded on patient -- she is improved, states she no longer feels short of breath. Advised her of the results of the CTA -- she is visibly relieved of the results. She does state that her headache is still present and requests medicines -- will give pain control. Rounded on patient, she is feeling much better. Must wait for ride as she drove herself to the ER this morning and has pain meds. She agrees with the plan for discharge and states she no longer feels dizzy, SOB, and does not have chest pain. Impression: Headache -- typical of usual, low suspicion for SAH or infectious etiology, SOB -- stable aortic dissection, labs are reassuring. EKG is stable, chest XR is WNL. She is not wheezing on exam. She no longer has SOB. Will discharge home, have her follow with PCP. She agrees with the plan. - Vital Signs Vital signs: Temp Pulse Resp BP Pulse Ox 98.3 F 73 18 167/73 H 100 01/06/19 15:27 01/06/19 15:27 01/06/19 15:27 01/06/19 15:27 01/06/19 15:27 - Laboratory Result Diagrams: 01/06/19 08:40 01/06/19 08:40 Laboratory results interpreted by me: 01/06/19 01/06/19 01/06/19 08:40 08:40 08:40 MCV 75 L MCH 23.8 L MCHC 31.8 L RDW 20.2 H PT 18.0 H APTT 38.3 H BUN 22 H Creatine Kinase 21 L Urine Blood Ur Leukocyte Esterase Urine Ascorbic Acid 01/06/19 11:00 MCV MCH MCHC RDW PT APTT BUN Creatine Kinase Urine Blood LARGE H Ur Leukocyte Esterase MODERATE H Urine Ascorbic Acid 40 H - Diagnostic Test Radiology reviewed: Image reviewed, Reports reviewed - EKG Interpretation by Me EKG shows normal: Sinus rhythm Rate: Normal When compared to previous EKG there are: No significant change Additional EKG results interpreted by me: NO STEMI, no ST changes, no significant changes from prior on december 23, 2018 Discharge - Discharge Clinical Impression: Shortness of breath, Dizziness UTI (urinary tract infection) Qualifiers: Urinary tract infection type: acute cystitis Hematuria presence: with hematuria Qualified Code(s): N30.01 - Acute cystitis with hematuria Condition: Stable Disposition: HOME, SELF-CARE Instructions: Dizziness ([facility]), Urinary Tract Infection ([facility]) Additional Instructions: FOLLOW UP WITH YOUR PRIMARY CARE PHYSICIAN IN THE NEXT 2 DAYS WITHOUT FAIL. COMPLETE ALL ANTIBIOTICS. PUSH FLUIDS. REST AT HOME. RETURN IF WORSENING SYMPTOMS-- SUCH CHEST PAIN, WORSENING SHORTNESS OF BREATH, FEVERS, PASSING OUT. Prescriptions: Nitrofurantoin Macrocrystal [Macrodantin] 100 mg PO BID 7 Days #14 capsule Ondansetron [Zofran Odt 4 mg Tablet] 1 - 2 tab PO Q4H PRN #15 tab.rapdis PRN Reason: For Nausea/Vomiting Forms: Return to Work Referrals: BRANDON RICK MD [Primary Care Provider] - Follow up in 3-5 days
--- NOTE | 2019-01-06 08:45 | RADIOLOGY REPORT (SQ) ---
EXAM DESCRIPTION: CHEST SINGLE VIEW COMPLETED DATE/TIME: 01/06/2019 8:30 am REASON FOR STUDY: bed 6 db COMPARISON: None. EXAM PARAMETERS: NUMBER OF VIEWS: One view. TECHNIQUE: Single frontal radiographic view of the chest acquired. RADIATION DOSE: NA LIMITATIONS: None. FINDINGS: LUNGS AND PLEURA: Elevation of the right hemidiaphragm. MEDIASTINUM AND HILAR STRUCTURES: No masses. Contour normal. HEART AND VASCULAR STRUCTURES: Heart normal in size. Normal vasculature. Status post median sternot fatou. BONES: No acute findings. HARDWARE: None in the chest. OTHER: No other significant finding. IMPRESSION: Elevation of the right hemidiaphragm status post sternotomy, findings generally suggesti ve of a prior lobectomy. No acute abnormality of the lungs. TECHNICAL DOCUMENTATION: JOB ID: [id number] [employer]- All Rights Reserved Reading location - IP/workstation name: [email or web address]
[2019-01-06 09:14] LABS: INTERNATIONAL RATION (INR) 1.47
[2019-01-06 09:15] LABS: ABSOLUTE BASOPHILS # (AUTO) 0.1 10^3/uL (0.0-0.2); ABSOLUTE EOSINOPHILS # (AUTO) 0.1 10^3/uL (0.0-0.6); ABSOLUTE LYMPHOCYTES (AUTO) 1.1 10^3/uL (0.5-4.7); ABSOLUTE MONOCYTES (AUTO) 0.4 10^3/uL (0.1-1.4); ABSOLUTE NEUT (AUTO) 4.1 10^3/uL (1.7-8.2); EOSINOPHILS % (AUTO) 2.2 % (0-6); HEMATOCRIT 38.6 % (36.0-47.0); HEMOGLOBIN 12.3 g/dL (12.0-15.5); LYMPHOCYTES % (AUTO) 18.9 % (13-45); MEAN CORPUSCULAR HEMOGLOBIN 23.8 pg (27.0-33.4); MEAN CORPUSCULAR HGB CONC 31.8 g/dL (32.0-36.0); MEAN CORPUSCULAR VOLUME 75 fl (80-97); MONOCYTES % (AUTO) 7.4 % (3-13); PARTIAL THROMBOPLASTIN TIME 38.3 SEC (23.5-35.8); PLATELET COUNT 271 10^3/uL (150-450); RED BLOOD COUNT 5.17 10^6/uL (3.72-5.28); RED CELL DISTRIBUTION WIDTH 20.2 % (11.5-14.0); SEGMENTED NEUTROPHILS % (AUTO) 70.5 % (42-78); TOTAL CELLS COUNTED % (AUTO) 100 %; WHITE BLOOD COUNT 5.8 10^3/uL (4.0-10.5)
[2019-01-06 09:38] LABS: ALBUMIN 3.9 g/dL (3.5-5.0); ALKALINE PHOSPHATASE 69 U/L (38-126); ANION GAP 7 (5-19); ASPARTATE AMINO TRANSFERASE 21 U/L (14-36); BILIRUBIN,DIRECT 0.3 mg/dL (0.0-0.4); BILIRUBIN,TOTAL 0.5 mg/dL (0.2-1.3); BLOOD UREA NITROGEN 22 mg/dL (7-20); CALCIUM 10.1 mg/dL (8.4-10.2); CARBON DIOXIDE 27 mmol/L (22-30); CHLORIDE 107 mmol/L (98-107); CREATINE KINASE 21 U/L (30-135); GLUCOSE 89 mg/dL (75-110); POTASSIUM 4.6 mmol/L (3.6-5.0); TOTAL PROTEIN 6.6 g/dL (6.3-8.2)
[2019-01-06] MEDS ORDERED: ACETAMINOPHEN 325 MG TABLET ONE (09:39)
[2019-01-06 09:48] LABS: CREATINE KINASE MB 0.52 ng/mL (<4.55); NT PRO BNP 182 pg/mL (5-900)
[2019-01-06 09:51] LABS: TROPONIN I < 0.012 ng/mL
[2019-01-06] MEDS ORDERED: NORMAL SALINE 1000 ML 1,000 ML IV ONE (10:08)
--- NOTE | 2019-01-06 10:43 | RADIOLOGY REPORT (SQ) ---
EXAM DESCRIPTION: CTA CHEST COMPLETED DATE/TIME: 01/06/2019 10:15 am REASON FOR STUDY: acute SOB, hx of aortic dissection COMPARISON: 12/23/2018 TECHNIQUE: CT scan of the chest performed using helical scanning technique with dynamic intravenous contrast injection. Images reviewed with lung, soft tissue and bone windows. Reconstructed coronal and sagittal MPR images reviewed. Additional 3 dimensional post-processing performed to develop Maximal Intensity Projection images (IL P). All images stored on PACS. All CT scanners at this facility use dose modulation, iterative reconstruction, and/or weight based d osing when appropriate to reduce radiation dose to as low as reasonably achievable (ALARA). [facility]: Dose Right [facility]: CareDose [facility]: Dose Right [facility]: Teradose 4D [facility]: [employer] CONTRAST TYPE AND DOSE: contrast/concentration: Isovue 350.00 mg/ml; Total Contrast Delivered: 66.0 ml; Total Saline Delivered: 60.0 ml Contrast bolus adequate for pulmonary arteries and aorta. RENAL FUNCTION: BUN 20 creatinine 1 RADIATION DOSE: CT Rad equipment meets quality standard of care and radiation dose reduction techniq ues were employed. CTDIvol: 14.2 - 22.5 mGy. DLP: 2758 mGy-cm. . LIMITATIONS: None. FINDINGS: LUNGS AND PLEURA: No masses, infiltrates, or pneumothorax. No pleural effusions or pleura l calcifications. The right hemidiaphragm is elevated. AORTA AND GREAT VESSELS: There is a dissection of the aorta extending from the aortic arch inferiorly . This dissection extends into the left subclavian artery. HEART: No pericardial effusion. Prior CABG. PULMONARY ARTERIES: No emboli visualized in the main pulmonary arteries or the segmental branches. HILAR AND MEDIASTINAL STRUCTURES: No identified masses or abnormal nodes. HARDWARE: Sternotomy wires. UPPER ABDOMEN: See separate report of the CT of the abdomen. THYROID AND OTHER SOFT TISSUES: No masses. No adenopathy. BONES: No acute or significant finding. 3D MIPS: Confirm above findings. OTHER: No other significant finding. IMPRESSION: Stable dissection of the thoracic aorta that begins at the aortic arch and involves the left subclavian artery. There is no pulmonary embolus. COMMENT: Quality ID # 436: Final reports with documentation of one or more dose reduction techniques (e.g., Automated exposure control, adjustment of the mA and/or kV according to patient size, use of iterative reconstruction technique) TECHNICAL DOCUMENTATION: JOB ID: [id number] [employer]- All Rights Reserved Reading location - IP/workstation name: [email or web address]
--- NOTE | 2019-01-06 10:57 | RADIOLOGY REPORT (SQ) ---
EXAM DESCRIPTION: CTA ABDOMEN/PELVIS W WO COMPLETED DATE/TIME: 01/06/2019 10:15 am REASON FOR STUDY: acute SOB, hx of aortic dissection COMPARISON: 12/23/2018 TECHNIQUE: CT scan of the abdominal aorta extending to the iliac bifurcation performed with intraven ous contrast using helical scanning technique with dynamic intravenous contrast injection. Images rev iewed with lung, soft tissue, and bone windows. Reconstructed coronal and sagittal MPR images reviewe d. All images stored on PACS. Advanced 3D imaging as volume rendering, MIPS, SSD performed? yes All CT scanners at this facility use dose modulation, iterative reconstruction, and/or weight based d osing when appropriate to reduce radiation dose to as low as reasonably achievable (ALARA). [facility]: Dose Right [facility]: CareDose [facility]: Dose Right [facility]: Teradose 4D [facility]: [employer] CONTRAST TYPE AND DOSE: 66 mL Omnipaque 350- low osmolar. RENAL FUNCTION: BUN 20 creatinine 1 LIMITATIONS: None. FINDINGS: AORTA AND VESSELS: There is a dissection extending from the thoracic aorta into the abdomi nal aorta to the just below the origins of the renal arteries. The right renal artery appears to denver se from the false lumen and fills in a retrograde fashion. Major abdominal vessels are opacified. T he celiac, SMA, and left renal artery arise from the true lumen. LUNG BASES: See separate report of CT of the chest. LIVER: Normal size. No masses or dilated ducts. SPLEEN: Normal size. No focal lesions. PANCREAS: No masses. No significant calcifications. No adjacent inflammation or peripancreatic fluid collections. Pancreatic duct not dilated. GALLBLADDER: Surgically absent. ADRENAL GLANDS: No significant masses or asymmetry. RIGHT KIDNEY AND URETER: No mass, calculi, or hydronephrosis. There is cortical thinning and scarrin g. LEFT KIDNEY AND URETER: No mass, calculi, or hydronephrosis. There is cortical thinning and scarring . RETROPERITONEUM: No retroperitoneal adenopathy, hemorrhage or masses. BOWEL AND PERITONEAL CAVITY: Gastric bypass. No bowel mass or inflammation. APPENDIX: Not identified. PELVIS: Urinary bladder is normal. No pelvic mass or fluid collection. ABDOMINAL WALL: No masses. No hernias. BONY STRUCTURES: No significant or acute findings. 3-D IMAGING: Confirms the above findings. OTHER: No other significant finding. IMPRESSION: Abdominal aortic aneurysm extends to just below the origins of the renal arteries. The right renal artery arises from the false lumen and this fills in a retrograde fashion. The celiac, S MA, and left renal artery arise from the true lumen. TECHNICAL DOCUMENTATION: JOB ID: [id number] Quality ID # [id number]: Final reports with documentation of one or more dose reduction techniques (e.g., Au tomated exposure control, adjustment of the mA and/or kV according to patient size, use of iterative reconstruction technique) 2010 [employer]- All Rights Reserved Reading location - IP/workstation name: [email or web address]
[2019-01-06] MEDS ORDERED: MORPHINE SULFATE 10 MG/ML INJ IV ONE (11:35)
[2019-01-06] MEDS ORDERED: DIPHENHYDRAMINE HCL 50 MG/ML VIAL IV ONE (11:44)
[2019-01-06 11:59] LABS: APPEARANCE,URINE SLIGHTLY-CLOUDY; BILIRUBIN,URINE NEGATIVE (NEGATIVE); CALCIUM OXALATE CRYSTALS,URINE FEW /HPF; COLOR,URINE YELLOW; GLUCOSE, URINE NEGATIVE (NEGATIVE); KETONES,URINE NEGATIVE (NEGATIVE); LEUKOCYTE ESTERASE,URINE MODERATE (NEGATIVE); NITRITE,URINE NEGATIVE (NEGATIVE); PROTEIN,URINE NEGATIVE (NEGATIVE); URINE SPECIFIC GRAVITY 1.024; UROBILINOGEN,URINE NEGATIVE mg/dL (<2.0)
[2019-01-06] MEDS ORDERED: ACETAMINOPHEN 325 MG TABLET PO ONE (12:13)
[2019-01-06] MEDS ORDERED: AMLODIPINE BESYLATE 5 MG TABLET PO ONE (12:14)
--- NOTE | 2019-01-06 13:12 | EKG REPORT ---
SEVERITY:- OTHERWISE NORMAL ECG - SINUS RHYTHM BORDERLINE LEFT AXIS DEVIATION : Confirmed by: Alvarez Texieira MD 06-Jan-2019 13:12:10
[2019-01-06 15:28] VITALS: BP 167/73
== END 2019-01-06 16:02 | disposition home or self-care (01) ==
LOC: ER 07:42
DX: R06.02 Shortness of breath (principal); N30.01 Acute cystitis with hematuria; R42 Dizziness and giddiness; R11.0 Nausea; R07.9 Chest pain, unspecified; I77.73 Dissection of renal artery; I10 Essential (primary) hypertension; R51 Headache; Z79.891 Long term (current) use of opiate analgesic; Z98.890 Other specified postprocedural states; Z88.1 Allergy status to other antibiotic agents; Z87.891 Personal history of nicotine dependence; Z98.84 Bariatric surgery status
CPT/HCPCS: 93005; 99284; 96361; 96374; 96375; 36415; 87086; 82553; 82550; 85025; 85610; 85730; 87088; 80053; 81001; 84484; 87186; 83880; 71045; 71275; 74174; 93010; J1200; J2270; J7030

== ENCOUNTER → 2019-04-28 | Outpatient (CLI) | payer BC ==
--- NOTE | 2019-04-28 16:12 | RADIOLOGY REPORT (SQ) ---
EXAM DESCRIPTION: CTA CHEST COMPLETED DATE/TIME: 04/28/2019 2:35 pm REASON FOR STUDY: Z98.890 OTHER SPECIFIED POSTPROCEDURAL STATES Z98.890 OTHER SPECIFIED POSTPROCEDU RAL STATES COMPARISON: CT angio chest 01/06/2019, 12/23/2018 CT abdomen pelvis 01/06/2019, 12/23/2018 TECHNIQUE: CT scan of the chest performed using helical scanning technique with dynamic intravenous contrast injection. Images reviewed with lung, soft tissue and bone windows. Reconstructed coronal and sagittal MPR images reviewed. Additional 3 dimensional post-processing performed to develop Maximal Intensity Projection images (MS P). All images stored on PACS. All CT scanners at this facility use dose modulation, iterative reconstruction, and/or weight based d osing when appropriate to reduce radiation dose to as low as reasonably achievable (ALARA). [facility]: Dose Right [facility]: CareDose [facility]: Dose Right [facility]: Teradose 4D [facility]: [employer]x-IO CONTRAST TYPE AND DOSE: contrast/concentration: Isovue 350.00 mg/ml; Total Contrast Delivered: 60.0 ml; Total Saline Delivered: 56.0 ml Contrast bolus optimized for the pulmonary arteries and thoracic aorta. RENAL FUNCTION: Creatinine 1.4 RADIATION DOSE: CT Rad equipment meets quality standard of care and radiation dose reduction techniq ues were employed. CTDIvol: 15.2 - 22.5 mGy. DLP: 646 mGy-cm. . LIMITATIONS: None. FINDINGS: LUNGS AND PLEURA: No masses, infiltrates, or pneumothorax. No pleural effusions or pleura l calcifications. AORTA AND GREAT VESSELS: Patient has a thoracic aortic dissection from the left subclavian artery thr ough the abdominal aorta. Dissection extends into the left subclavian artery best shown on axial mario ge 19. Stable ectasia left proximal subclavian artery, 2 cm in diameter. No extension into the brac hiocephalic artery or left common carotid artery. In the upper abdomen, the celiac artery, SMA, left renal artery and right renal artery all enhance fr om the aortic true lumen. There is moderate to high-grade right renal artery stenosis with greater t lauren 75% ostial narrowing on coronal image 56 through 59. No enlarging thoracic or upper abdominal aortic aneurysm. Stable ectasia of the thoracic aorta as fo llows: Ascending thoracic aorta is 3.3 cm in diameter. At the level of the great vessels, thoracic aortic arch is 3.4 cm in diameter Proximal descending thoracic aorta 3.6 cm in diameter Midthoracic descending aorta 3.2 cm diameter Distal thoracic aorta 3.2 cm in diameter At the aortic hiatus, 3.2 cm in diameter Upper abdominal aorta 3.3 cm in diameter at the takeoff of the celiac artery and SMA Infrarenal abdominal aorta 2 cm in diameter. HEART: No pericardial effusion. No significant coronary artery calcifications. Ascending aortic alysa t in place without endoleak PULMONARY ARTERIES: No emboli visualized in the main pulmonary arteries or the segmental branches. HILAR AND MEDIASTINAL STRUCTURES: No identified masses or abnormal nodes. HARDWARE: None in the chest. UPPER ABDOMEN: Bilateral intrarenal 1 to 2 cm diameter nonobstructive kidney stones are present 1,100 Hounsfield units in density. 2.2 cm right adrenal nodule, stable clips post cholecystectomy. Patie nt is also post gastric bypass THYROID AND OTHER SOFT TISSUES: No masses. No adenopathy. BONES: Post sternotomy. 3D MIPS: Confirm above findings. OTHER: No other significant finding. IMPRESSION: Stable thoracic and abdominal aortic dissection COMMENT: Quality ID # 436: Final reports with documentation of one or more dose reduction techniques (e.g., Automated exposure control, adjustment of the mA and/or kV according to patient size, use of iterative reconstruction technique) TECHNICAL DOCUMENTATION: JOB ID: [id number] [employer]- All Rights Reserved Reading location - IP/workstation name: [email or web address]
--- NOTE | 2019-04-29 18:01 | XCELERA REPORT ---
[address] [address] Transthoracic Echocardiogram Report Name: ALIDA ASH Age: 53 yrs Gender: Female : 1965 Patient Status: Outpatient Patient Location: [facility] Study Date: 04/28/2019 01:27 PM Height: 64 in Weight: 205 lb BSA: 2.0 m2 Procedure: A complete two-dimensional transthoracic echocardiogram was performed (2D, M-mode, spectral and color flow Doppler). The study was technically adequate with some images being suboptimal in quality. Reason For Study: OTHER SPECIFIED POSTPROCEDURAL STATES Ordering Physician: BLAISE AYALA Performed By: Joya Davenport Interpretation Summary Left ventricular systolic function is normal. There is mild concentric left ventricular hypertrophy. The left ventricle is normal in size. Doppler measurements suggest pseudonormalized left ventricular relaxation, which is associated with grade II/IV or mild to moderate diastolic dysfunction Wall motion cannot be accurately commented on, but no definite regional wall motion abnormalities noted. The right ventricular systolic function is normal. The left atrium is mildly dilated. The right atrium is normal in size There is a trace amount of mitral regurgitation There is no mitral valve stenosis. No aortic regurgitation is present. There is no aortic valve stenosis There is a trace to mild amount of tricuspid regurgitation Right ventricular systolic pressure is at the upper limits of normal The aortic root is normal size. The inferior vena cava appeared normal and decreased > 50% with respiration (RAP 5-10 mmHg) There is no pericardial effusion. MMode/2D Measurements & Calculations RVDd: 2.7 cm LVIDd: 4.6 cm FS: 37.9 % Ao root diam: 2.7 cm IVSd: 1.0 cm LVIDs: 2.9 cm EDV(Teich): 96.7 ml Ao root area: 5.9 cm2 LVPWd: 0.99 cm ESV(Teich): 30.9 ml LA dimension: 2.9 cm EF(Teich): 68.1 % Doppler Measurements & Calculations MV E max matthew: MV P1/2t max matthew: Ao V2 max: LV V1 max P.1 cm/sec 84.1 cm/sec 121.8 cm/sec 5.1 mmHg MV A max matthew: MV P1/2t: 64.2 msec Ao max P.9 mmHg LV V1 max: 57.1 cm/sec MVA(P1/2t): 3.4 cm2 112.6 cm/sec MV E/A: 1.5 MV dec slope: 383.3 cm/sec2 MV dec time: 0.20 sec PA V2 max: TR max matthew: MV P1/2t-pr_phl: 80.5 cm/sec 269.3 cm/sec 64.2 msec PA max PG: TR max P.0 mmHg 2.6 mmHg Left Ventricle The left ventricle is normal in size. There is mild concentric left ventricular hypertrophy. Left ventricular systolic function is normal. Doppler measurements suggest pseudonormalized left ventricular relaxation, which is associated with grade II/IV or mild to moderate diastolic dysfunction. Wall motion cannot be accurately commented on, but no definite regional wall motion abnormalities noted. Right Ventricle The right ventricle is normal size. There is normal right ventricular wall thickness. The right ventricular systolic function is normal. Atria The right atrium is normal in size. The left atrium is mildly dilated. Mitral Valve The mitral valve leaflets are sclerotic, but show no functional abnormalities. There is no mitral valve stenosis. There is a trace amount of mitral regurgitation. Aortic Valve The aortic valve is grossly normal. There is no aortic valve stenosis. No aortic regurgitation is present. Tricuspid Valve The tricuspid valve is not well visualized, but is grossly normal. There is no tricuspid stenosis. There is a trace to mild amount of tricuspid regurgitation. Right ventricular systolic pressure is at the upper limits of normal. Pulmonic Valve The pulmonic valve is not well visualized. Great Vessels The aortic root is normal size. The inferior vena cava appeared normal and decreased > 50% with respiration (RAP 5-10 mmHg). Effusions There is no pericardial effusion. : BLAISE AYALA Shyamal
== END ==
LOC: RAD 12:55
PROVIDERS: ATTEND Internal Medicine Geriatric Medicine
DX: Z98.890 Other specified postprocedural states (principal)
CPT/HCPCS: 71275; 82565; 93306

== ENCOUNTER 2019-09-17 08:22 | Emergency (ER) | payer BC ==
[2019-09-17] MEDS ORDERED: NORMAL SALINE 1000 ML 1,000 ML IV ONE ×2 (08:31→09:31)
--- NOTE | 2019-09-17 08:42 | ER Document Report ---
Entered by MAGED ROD SCRIBE 09/17/19 0835 Acting as scribe for:LUIS FERNANDO DAVID MD ED Blood Pressure Problem - General Chief Complaint: Low Blood Pressure Stated Complaint: LOW BLOOD PRESSURE Primary Care Provider: BLAISE AYALA MD [NO LOCAL MD] - Follow up in 1 week Mode of Arrival: Wheelchair Information source: Patient Notes: This 53-year-old female patient on Xarelto for DVT s/p AAA repair presents to the emergency department today with complaints of hypotension, dizziness, and a headache. Patient states these symptoms initially started yesterday but she was able to work through it. Patient states today when she woke up she felt normal but after getting to work and standing up the dizziness began again and she has a "splitting headache". Patient states yesterday she skipped her blood pressure medications but today she took both of those. Patient denies any chest pain, fevers, shortness of breath. Patient works here as a respiratory therapist and she was found to be orthostatic with a standing systolic pressure in the 70s. After arrival here in the ED she has a supine blood pressure of 100/64. TRAVEL OUTSIDE OF THE [place] IN LAST 30 DAYS: No - HPI Patient complains to provider of: Low blood pressure - Related Data Allergies/Adverse Reactions: cephalexin monohydrate [From Keflex] Allergy (Verified 01/06/19 07:45) Past Medical History - General Information source: Patient - Social History Smoking Status: Former Smoker Cigarette use (# per day): No Frequency of alcohol use: None Drug Abuse: None Lives with: Family Family History: Reviewed & Not Pertinent - Past Medical History Cardiac Medical History: Reports: Hx DVT, Hx Hypertension Renal/ Medical History: Reports: Hx Kidney Stones Psychiatric Medical History: Reports: Hx Attention Deficit Hyperactivity Disorder, Hx Bipolar Disorder, Hx Depression Past Surgical History: Reports: Hx Gastric Bypass Surgery - 2006, Hx Hysterectomy, Hx Kidney (Renal Surgery) - bilateral renal stone extraction, Hx Vascular Surgery - AAA repair 08/04/18 - Immunizations Hx Diphtheria, Pertussis, Tetanus Vaccination: Yes Review of Systems - Review of Systems Constitutional: denies: Fever EENT: No symptoms reported Cardiovascular: See HPI, Dizziness. denies: Chest pain Respiratory: denies: Short of breath Gastrointestinal: No symptoms reported Genitourinary: No symptoms reported Female Genitourinary: No symptoms reported Musculoskeletal: No symptoms reported Skin: No symptoms reported Hematologic/Lymphatic: No symptoms reported Neurological/Psychological: No symptoms reported -: Yes All other systems reviewed and negative Physical Exam - Vital signs Vitals: Resp 26 H 09/17/19 08:26 - Notes Notes: Physical Exam: General: Alert, tired and worn down. Keeps eyes closed throughout interaction. HEENT: Normocephalic. Atraumatic. Keeps eyes closed, but when asked to open them pupils are pinpoint. Palpation of the forehead and temporal areas "Feels good" according to patient. Palpation of the eyeballs does not increase headache, globes are not firm. Oropharynx clear. Dry mucous membranes. Neck: Supple. Non-tender. Respiratory: No respiratory distress. Clear and equal breath sounds bilaterally. Healed median sternotomy scar. Cardiovascular: Regular rate and rhythm. Abdominal: Obese. Non-tender. No distension. Normal Bowel Sounds. Back: No gross abnormalities. Extremities: Moves all four extremities. Upper extremities: Normal inspection. Normal ROM. Lower extremities: Normal inspection. No edema. Normal ROM. Neurological: Normal cognition. AAOx4. Normal speech. Psychological: Normal affect. Normal Mood. Skin: Warm. Dry. Normal color. Course - Re-evaluation Re-evalutation: 09/17/19 09:08 The nurse noted that the patient's hands were turning blue and cool to touch. I went back and checked on the patient, both legs and feet are very warm. Both hands have a blotchy cyanosis, and are quite cool to touch. Patient states this is a chronic problem where her hands will turn blue and cold regularly. When I asked her if she has a history of this acrocyanosis, she says yes that this is a common problem. She states that she is feeling better at this time, her headache is improved. Her blood pressure has increased to 102 systolic after almost 1 L of saline is running in. 09/17/19 09:33 The initial lab work suggests the patient is quite dehydrated. Her BUN is 34 the creatinine 1.66, the most recent lab work is from 01/06/2019 when the BUN was 23 creatinine was 0.93 09/17/19 10:08 Patient is sleeping at this time. Blood pressure is 123/78 with pulse of 75 and pulse oximetry reading of 100% on 2 L nasal cannula. She has had a total of 2 L of normal saline IV at this time. 09/17/19 13:19 At this time the patient is feeling much better. She stood up and walked around and her blood pressure was up above 150 systolic. The catheterized urine was similar to the one cath specimen, it had too numerous to count red cells and 35 white cells with moderate leukocyte esterase. The patient does attribute the urine RBCs to her frequent passage of small kidney stones. This may also be the cause of the pyuria. Since a similar urine cultured E. coli last January, she will be treated with antibiotics to cover that until the culture results come back. - Vital Signs Vital signs: Temp Pulse Resp BP Pulse Ox 97.9 F 19 151/102 H 99 09/17/19 08:40 09/17/19 13:14 09/17/19 13:14 09/17/19 13:14 - Laboratory Result Diagrams: 09/17/19 08:30 09/17/19 08:30 Laboratory results interpreted by me: 09/17/19 09/17/19 09/17/19 08:30 08:30 08:30 RDW 14.2 H D-Dimer 0.55 H BUN 34 H Creatinine 1.66 H Est GFR ( Amer) 39 L Est GFR (MDRD) Non-Af 33 L Glucose 116 H AST 89 H ALT 72 H Creatine Kinase < 20 L Urine Protein Urine Blood Ur Leukocyte Esterase Urine Ascorbic Acid 09/17/19 09/17/19 11:30 12:34 RDW D-Dimer BUN Creatinine Est GFR ( Amer) Est GFR (MDRD) Non-Af Glucose AST ALT Creatine Kinase Urine Protein 30 H 30 H Urine Blood LARGE H LARGE H Ur Leukocyte Esterase MODERATE H LARGE H Urine Ascorbic Acid 40 H 40 H - EKG Interpretation by Me EKG shows normal: Sinus rhythm, Reliance, Intervals, QRS Complexes. abnormal: ST-T Waves - Borderline anterior lateral T abnormalities Rate: Normal - 76 Rhythm: NSR When compared to previous EKG there are: No significant change Discharge - Discharge Clinical Impression: Dehydration, Acute kidney injury Hypotension Qualifiers: Hypotension type: hypotension due to hypovolemia Qualified Code(s): I95.89 - Other hypotension Urinary tract infection Qualifiers: Urinary tract infection type: site unspecified Hematuria presence: with hematur ia Qualified Code(s): N39.0 - Urinary tract infection, site not specified Headache Qualifiers: Headache type: unspecified Headache chronicity pattern: acute headache Intractability: not intractable Qualified Code(s): R51 - Headache Condition: Stable Disposition: HOME, SELF-CARE Additional Instructions: Hypotension: Your blood pressure is low. Low blood pressure can make you feel weak, lightheaded, and even make you pass out. Low blood pressure can be caused by dehydration or blood loss. Problems with the heart, kidneys, or blood vessels can cause hypotension. Certain medications can make your blood pressure abnormally low. Infection can lower blood pressure. The treatment of low blood pressure depends on the severity of the symptoms, and on the underlying cause. Sometimes it's not possible to identify a cause. At this time, it doesn't appear that the problem is serious enough to require hospitalization. Medicines that could be contributing to the problem can be withheld or reduced in dosage if your doctor approves. Get plenty of fluids. Eat a healthy diet. Be careful to stand up slowly. If you feel suddenly lightheaded or if your vision goes velez, sit or lie down at once. Don't drive or operate machinery until the symptoms are under control. Return or call the doctor if you develop fainting or severe dizziness, severe weakness, problems with vision, chest pain, shortness of breath, fever, or confusion. Dehydration: Dehydration can result from vomiting or diarrhea, fever, or decreased intake of fluids. If severe, hospitalization and intravenous fluids may be required. Most cases are treated at home with fluids by mouth. For the next 24 hours, drink lots of clear fluids. In mild cases, this can be soda pop or sports drinks. Try to get three liters (3 quarts) of fluid per day. If vomiting occurs, continue to drink the fluids frequently (every 15 to 20 minutes), but in small amounts (one or two ounces). Depending on the type of dehydration, the doctor may prescribe antinausea medicine or potassium replacements. Call the doctor or return for re-examination if you become progressively weak, vomit repeatedly, or have other new symptoms. Urinary Tract Infection: Your evaluation suggests that you may have a urinary tract infection. This is due to germs growing in the bladder. This is a common problem. This infection usually responds quickly to antibiotics. Your antibiotic should be taken exactly as prescribed. Drink plenty of fluids -- three to four quarts a day. Certain urine infections require a culture. If the doctor obtained a culture, the results will be back in two days. You should call to see if a change in treatment is needed. A repeat urinalysis after you finish treatment is often recommended. The physician will let you know if further testing is required. Call the doctor if you develop fever, chills, flank pain, inability to urinate, or blood in the urine. Take the antibiotics as prescribed, check on the urine culture in 2 days to see if you need to continue the antibiotics. Drink plenty of fluids throughout the day in the evening. Take Tylenol for headache if needed. Get plenty of rest today. Follow-up with your primary care provider to reevaluate your renal function after you have maintained good hydration for a few days. RETURN TO THE EMERGENCY ROOM IF ANY NEW OR WORSENING SYMPTOMS. Prescriptions: Sulfamethoxazole/Trimethoprim [Septra-Ds 800-160 mg Tablet] 1 tab PO BID #10 tablet Forms: Return to Work Referrals: BLAISE AYALA MD [NO LOCAL MD] - Follow up in 1 week I personally performed the services described in the documentation, reviewed and edited the documentation which was dictated to the scribe in my presence, and it accurately records my words and actions.
[2019-09-17 08:51] LABS: ABSOLUTE EOSINOPHILS # (AUTO) 0.1 10^3/uL (0.0-0.6); ABSOLUTE LYMPHOCYTES (AUTO) 0.9 10^3/uL (0.5-4.7); ABSOLUTE MONOCYTES (AUTO) 0.4 10^3/uL (0.1-1.4); ABSOLUTE NEUT (AUTO) 3.3 10^3/uL (1.7-8.2); EOSINOPHILS % (AUTO) 2.9 % (0-6); HEMATOCRIT 40.2 % (36.0-47.0); HEMOGLOBIN 13.3 g/dL (12.0-15.5); LYMPHOCYTES % (AUTO) 18.7 % (13-45); MEAN CORPUSCULAR HEMOGLOBIN 28.9 pg (27.0-33.4); MEAN CORPUSCULAR VOLUME 87 fl (80-97); MONOCYTES % (AUTO) 8.2 % (3-13); PLATELET COUNT 287 10^3/uL (150-450); RED CELL DISTRIBUTION WIDTH 14.2 % (11.5-14.0); SEGMENTED NEUTROPHILS % (AUTO) 69.2 % (42-78); TOTAL CELLS COUNTED % (AUTO) 100 %; WHITE BLOOD COUNT 4.7 10^3/uL (4.0-10.5)
[2019-09-17 09:05] LABS: ALBUMIN 3.9 g/dL (3.5-5.0); ALKALINE PHOSPHATASE 96 U/L (38-126); ANION GAP 10 (5-19); ASPARTATE AMINO TRANSFERASE 89 U/L (14-36); BILIRUBIN,TOTAL 0.5 mg/dL (0.2-1.3); BLOOD UREA NITROGEN 34 mg/dL (7-20); CARBON DIOXIDE 25 mmol/L (22-30); CHLORIDE 105 mmol/L (98-107); CREATINE KINASE < 20 U/L (30-135); GLUCOSE 116 mg/dL (75-110); POTASSIUM 3.9 mmol/L (3.6-5.0); TOTAL PROTEIN 6.6 g/dL (6.3-8.2)
[2019-09-17] MEDS ORDERED: RINGERS SOLUTION,LACTATED 1,000 ML IV ONE (10:09)
[2019-09-17 11:44] LABS: APPEARANCE,URINE SLIGHTLY-CLOUDY; BILIRUBIN,URINE NEGATIVE (NEGATIVE); COLOR,URINE YELLOW; GLUCOSE, URINE NEGATIVE (NEGATIVE); KETONES,URINE NEGATIVE (NEGATIVE); LEUKOCYTE ESTERASE,URINE MODERATE (NEGATIVE); NITRITE,URINE NEGATIVE (NEGATIVE); PROTEIN,URINE 30 mg/dL (NEGATIVE); URINE SPECIFIC GRAVITY 1.012; UROBILINOGEN,URINE NEGATIVE mg/dL (<2.0)
[2019-09-17 12:53] LABS: APPEARANCE,URINE SLIGHTLY-CLOUDY; BILIRUBIN,URINE NEGATIVE (NEGATIVE); COLOR,URINE YELLOW; GLUCOSE, URINE NEGATIVE (NEGATIVE); KETONES,URINE NEGATIVE (NEGATIVE); LEUKOCYTE ESTERASE,URINE LARGE (NEGATIVE); NITRITE,URINE NEGATIVE (NEGATIVE); PROTEIN,URINE 30 mg/dL (NEGATIVE); URINE SPECIFIC GRAVITY 1.011; UROBILINOGEN,URINE NEGATIVE mg/dL (<2.0)
--- NOTE | 2019-09-17 13:12 | EKG REPORT ---
SEVERITY:- BORDERLINE ECG - SINUS RHYTHM BORDERLINE T ABNORMALITIES, ANT-LAT LEADS : Confirmed by: Alvarez Teixeira MD 17-Sep-2019 13:11:44
[2019-09-17 13:18] VITALS: BP 151/102
[2019-09-17] MEDS ORDERED: SULFAMETHOXAZOLE/TRIMETHOPRIM 800-160 MG TABLET PO ONE (13:27)
== END 2019-09-17 13:45 | disposition home or self-care (01) ==
LOC: ER 08:22
DX: N17.9 Acute kidney failure, unspecified (principal); I95.89 Other hypotension; E86.0 Dehydration; N39.0 Urinary tract infection, site not specified; R51 Headache; R42 Dizziness and giddiness; I95.9 Hypotension, unspecified; Z79.899 Other long term (current) drug therapy; Z87.891 Personal history of nicotine dependence; I10 Essential (primary) hypertension
CPT/HCPCS: 93005; 99285; 96360; 96361; 51701; 36415; 87040; 87086; 82962; 82550; 85025; 80053; 81001; 84484; 85379; 93010; J7030; J7120

== ENCOUNTER → 2019-09-26 | Outpatient (CLI) | payer BC ==
[2019-09-26 17:28] LABS: ALBUMIN 4.3 g/dL (3.5-5.0); ALKALINE PHOSPHATASE 93 U/L (38-126); ANION GAP 9 (5-19); ASPARTATE AMINO TRANSFERASE 23 U/L (14-36); BILIRUBIN,TOTAL 0.3 mg/dL (0.2-1.3); BLOOD UREA NITROGEN 26 mg/dL (7-20); CALCIUM 10.5 mg/dL (8.4-10.2); CARBON DIOXIDE 29 mmol/L (22-30); CHLORIDE 98 mmol/L (98-107); GLUCOSE 84 mg/dL (75-110); POTASSIUM 4.9 mmol/L (3.6-5.0); TOTAL PROTEIN 7.2 g/dL (6.3-8.2)
== END ==
LOC: LAB 16:41
PROVIDERS: ATTEND Family Medicine
DX: I10 Essential (primary) hypertension (principal); R94.4 Abnormal results of kidney function studies; R79.89 Other specified abnormal findings of blood chemistry
CPT/HCPCS: 36415; 80048; 80076

== ENCOUNTER → 2019-11-07 | Outpatient (CLI) | payer BC ==
[2019-11-07 17:07] LABS: HEMOGLOBIN 14.8 g/dL (12.0-15.5); MEAN CORPUSCULAR HEMOGLOBIN 28.9 pg (27.0-33.4); MEAN CORPUSCULAR HGB CONC 33.7 g/dL (32.0-36.0); MEAN CORPUSCULAR VOLUME 86 fl (80-97); PLATELET COUNT 315 10^3/uL (150-450); RED BLOOD COUNT 5.13 10^6/uL (3.72-5.28); RED CELL DISTRIBUTION WIDTH 15.2 % (11.5-14.0); WHITE BLOOD COUNT 8.5 10^3/uL (4.0-10.5)
[2019-11-07 17:24] LABS: ANION GAP 12 (5-19); BLOOD UREA NITROGEN 33 mg/dL (7-20); CALCIUM 10.7 mg/dL (8.4-10.2); CARBON DIOXIDE 24 mmol/L (22-30); CHLORIDE 101 mmol/L (98-107); GLUCOSE 93 mg/dL (75-110); POTASSIUM 4.6 mmol/L (3.6-5.0)
== END ==
LOC: LAB 16:41
PROVIDERS: ATTEND Family Medicine
DX: N20.0 Calculus of kidney (principal); N18.9 Chronic kidney disease, unspecified
CPT/HCPCS: 36415; 80048; 85027

== ENCOUNTER → 2019-11-29 | Outpatient (CLI) | payer BC | LOC: RDC 12:16 | PROVIDERS: ATTEND Nurse Practitioner Family | DX: Z53.9 Procedure and treatment not carried out, unspecified reason (principal) | CPT/HCPCS: 87635; C9803 ==

== ENCOUNTER → 2020-06-03 | Outpatient (CLI) | payer BC ==
[~2020-06-03] MED LIST: COVID-19 VACCINE (PFIZER)/PF 30 MCG/0.3 ML VIAL IM ONE; EPINEPHRINE INJ/PF 1 MG/1 ML AMPULE IM PRN
== END ==
LOC: EMPHEALTH 09:49
PROVIDERS: ATTEND Internal Medicine
DX: Z23 Encounter for immunization (principal)
CPT/HCPCS: 91300

== ENCOUNTER → 2020-06-26 | Outpatient (CLI) | payer BC | LOC: EMPHEALTH 10:09 | PROVIDERS: ATTEND Internal Medicine | DX: Z23 Encounter for immunization (principal) | CPT/HCPCS: 91300 ==